=== PATIENT | male | born 1945 | race Caucasian/White ===

== ENCOUNTER 2016-07-19 10:59 | Emergency (ER) | payer MEDICARE, MEDICAID ==
[~2016-07-19 10:59] MED LIST: CATAPRES0.1 MG; CATAPRES0.2 MG; HYDROCHLOROTH12.5 M1; LEXAPRO10 MG; LEXAPRO20 MG; WELLBUTRIN XL300 MG
[2016-07-19] MEDS ORDERED: HIGH CHOL MED (11:09)
[2016-07-19] MEDS ORDERED: HIGH BP MED (11:09)
[2016-07-19 11:41] LABS: URINE BILIRUBIN NEGATIVE (NEG); URINE BLOOD NEGATIVE (NEG); URINE GLUCOSE (UA) NEGATIVE (NEG); URINE KETONE NEGATIVE (NEG); URINE LEUKOCYTE ESTERASE NEGATIVE (NEG); URINE NITRITE NEGATIVE (NEG); URINE PROTEIN NEGATIVE (NEG)
[2016-07-19 11:43] LABS: URINE APPEARANCE CLEAR; URINE COLOR YELLOW
== END 2016-07-19 13:22 ==
LOC: EDMED 10:59
PROVIDERS: Emergency Medicine
PROC: 0T9B70Z Drainage of Bladder with Drainage Device, Via Natural or Artificial Opening (ICD-10-PCS; principal; 2016-07-19)
PROC: 4A0D7LZ Measurement of Urinary Volume, Via Natural or Artificial Opening (ICD-10-PCS; 2016-07-19)
DX: R33.9 Retention of urine, unspecified (principal); I10 Essential (primary) hypertension; Z79.899 Other long term (current) drug therapy

== ENCOUNTER 2016-07-24 11:10 | Emergency (ER) | payer MEDICARE, MEDICAID, OTHER ==
[~2016-07-24 11:10] MED LIST changes: +HIGH BP MED; +HIGH CHOL MED
[2016-07-24] MEDS ORDERED: LISINOPRIL-HCT1 EAC2 PO (12:08)
[2016-07-24] MEDS ORDERED: ZOCOR80 M1 PO (12:08)
[2016-07-24] MEDS ORDERED: NAPROSYN500 M1 PO (12:08)
[2016-07-24] MEDS ORDERED: PROTONIX40 M2 PO (12:08)
[2016-07-24] MEDS ORDERED: BAYER ADVANCED500 M1 PO (12:09)
[2016-07-24] MEDS ORDERED: FLOMAX0.4 M1 PO (12:09)
[2016-07-24 12:32] LABS: URINE BILIRUBIN NEGATIVE (NEG); URINE BLOOD LARGE (NEG); URINE GLUCOSE (UA) NEGATIVE (NEG); URINE KETONE NEGATIVE (NEG); URINE LEUKOCYTE ESTERASE POSITIVE (NEG); URINE NITRITE POSITIVE (NEG); URINE PH 6.5 (5.0-8.0); URINE PROTEIN MODERATE (NEG)
[2016-07-24 12:34] LABS: URINE APPEARANCE CLOUDY; URINE COLOR YELLOW
[2016-07-24 12:38] LABS: URINE WBC 80-100 /[HPF] (0-5)
[2016-07-24 12:40] LABS: URINE BACTERIA 4+; URINE RBC 40-50 /[HPF] (0-5)
[2016-07-24] MEDS ORDERED: BACTRIM DS TAB1 EAC2 PO (13:03)
== END 2016-07-24 14:08 ==
LOC: EDMED 11:10
PROVIDERS: Nurse Practitioner Family
PROC: 0T9B70Z Drainage of Bladder with Drainage Device, Via Natural or Artificial Opening (ICD-10-PCS; principal; 2016-07-24)
DX: N39.0 Urinary tract infection, site not specified (principal); R33.9 Retention of urine, unspecified; I10 Essential (primary) hypertension; Z79.899 Other long term (current) drug therapy

== ENCOUNTER 2016-07-30 10:29 | Emergency (ER) | payer MEDICARE, MEDICAID ==
[~2016-07-30 10:29] MED LIST changes: +BACTRIM DS TAB1 EAC2 PO; +BAYER ADVANCED500 M1 PO; +FLOMAX0.4 M1 PO; +LISINOPRIL-HCT1 EAC2 PO; +NAPROSYN500 M1 PO; +PROTONIX40 M2 PO; +ZOCOR80 M1 PO
[2016-07-30] MEDS ORDERED: BACTRIM DS TAB1 EAC2 PO (11:05)
[2016-07-30] MEDS ORDERED: BACITRACIN1 G1 EXT (12:07)
== END 2016-07-30 12:22 ==
LOC: EDMED 10:29
DX: N48.89 Other specified disorders of penis (principal); I10 Essential (primary) hypertension; E78.5 Hyperlipidemia, unspecified; Z86.73 Personal history of transient ischemic attack (TIA), and cerebral infarction without residual deficits; Z79.899 Other long term (current) drug therapy